=== PATIENT | male | born 1980 | race Caucasian/White ===

== ENCOUNTER 2022-05-24 19:36 | Emergency (ER) | payer BC ==
[2022-05-24 20:42] LABS: HEMOGLOBIN 15.1 gm/dl (14.0-17.5); RED BLOOD COUNT 5.45 M/UL (4.20-5.50); WHITE BLOOD COUNT 7.8 K/UL (4.5-11.0)
[2022-05-24 20:56] LABS: BUN/CREATININE RATIO 13 (0-10)
[2022-05-25] MEDS ORDERED: PRILOSEC OTC20 MG PO (02:26)
== END 2022-05-25 02:44 | disposition home or self-care (01) ==
LOC: ER1 19:36
PROVIDERS: Physician Assistant
DX: R07.89 Other chest pain (principal); K21.9 Gastro-esophageal reflux disease without esophagitis; Z87.442 Personal history of urinary calculi
CPT/HCPCS: 71045; 80053; 82550; 82553; 84484; 85025; 93005; 99285